=== PATIENT | male | born 1960 | race African-American/Black ===

== ENCOUNTER 2024-06-23 20:31 | Observation (INO) | payer MEDICAID, SELFPAY ==
[2024-06-23 21:01] LABS: #Basophils 0.05 10x3/uL (0.0-0.2); %Basophils 0.7 % (0.0-1.0); %Eosinophils 2.5 % (0.0-10.0); %Lymphocytes 31.9 % (21.0-51.0); %Neutrophils 57.6 % (42.0-75.0); Hematocrit 53.5 % (42.0-52.0); Hemoglobin 18.1 g/dL (14.0-18.0); Mean Corpuscular HGB CONC 33.8 g/dL (32.0-36.0); Mean Corpuscular Hemoglobin 32.6 pg (27.0-31.0); Mean Corpuscular Volume 96.4 fL (78.0-98.0); Mean Platelet Volume 9.5 fL (7.4-10.4); Platelet Count 252 10x3/uL (130-400); RBC Distribution Width 12.5 % (11.5-14.5); Red Blood Cell (RBC) Count 5.55 mill/uL (4.70-6.10)
[2024-06-23 21:22] LABS: ALT (SGPT) 77 U/L (8-55); AST (SGOT) 66 U/L (5-34); Albumin 3.5 g/dL (3.4-4.8); Alkaline Phosphatase 117 U/L (40-110); Anion Gap 15 mmol/L (10-20); BUN (Urea Nitrogen) 14 mg/dL (8.4-25.7); Bilirubin, Total 0.4 mg/dL (0.2-1.2); Calc. Creatinine Clearance 0 mL/min (70-130); Calcium 9.4 mg/dL (7.8-10.44); Carbon Dioxide 24 mmol/L (23-31); Chloride 105 mmol/L (98-107); Estimated GFR 95; Globulin 4.4 g/dL (2.4-3.5); Glucose 95 mg/dL (80-115); Protein, Total 7.9 g/dL (5.8-8.1); Sodium 140 mmol/L (136-145)
[2024-06-23 21:27] LABS: Troponin I Less than 0.010 ng/mL (< 0.028)
[2024-06-23 21:47] LABS: Acetaminophen Less than 10 mcg/mL (Less than 10); Alcohol Less than 10.0 mg/dL (Less than 10); Salicylate Less than 8.0 mg/dL (Less than 8.0)
[2024-06-24] MEDS ORDERED: Atorvastatin Calcium 40 MG TAB ONE (20:33)
[2024-06-24] MEDS ORDERED: Famotidine 20 MG TAB ONE (20:33)
[2024-06-25] MEDS ORDERED: Aspirin 81 mg Enteric Coated Tablet ONE (08:39)
[2024-06-25] MEDS ORDERED: Famotidine 20 MG TAB ONE (08:39)
[2024-06-30 08:35] LABS: A1c 224.998 g/dL; Hb (HGBA1c) 5863.7151 umol/L
[2024-06-30 08:44] LABS: Hemoglobin A1c 5.7 % (4.0-6.0)
== END 2024-06-25 15:35 | disposition home or self-care (01) ==
LOC: ERS 20:31 → 2SE 23:00
PROVIDERS: ADMIT Student in an Organized Health Care Education/Training Program; ATTEND Student in an Organized Health Care Education/Training Program
DX: G45.9 Transient cerebral ischemic attack, unspecified (principal); R53.1 Weakness; M47.812 Spondylosis without myelopathy or radiculopathy, cervical region; M99.63 Osseous and subluxation stenosis of intervertebral foramina of lumbar region; G51.0 Bell's palsy; F17.200 Nicotine dependence, unspecified, uncomplicated
CPT/HCPCS: 36415; 70496; 70498; 71045; 72141; 80053; 80307; 83036; 84484; 85025; 93005